=== PATIENT | female | born 2000 | race African-American/Black ===

== ENCOUNTER 2019-12-27 22:10 | Emergency (ER) | payer OTHER ==
[~2019-12-27] VITALS: Ht 160 cm; Wt 61.2 kg
[2019-12-28] MEDS ORDERED: MUPIROCIN22 GM TOP (00:48)
[2019-12-28] MEDS ORDERED: AMOX-CLAV 875-1 EACH PO (00:48)
== END 2019-12-28 01:46 | disposition home or self-care (01) ==
LOC: ER 22:10
DX: S91.321A Laceration with foreign body, right foot, initial encounter (principal); W25.XXXA Contact with sharp glass, initial encounter; Y93.01 Activity, walking, marching and hiking; Y92.511 Restaurant or cafe as the place of occurrence of the external cause; Y99.8 Other external cause status